=== PATIENT | male | born 2000 | race Caucasian/White ===

== ENCOUNTER 2024-10-31 00:28 | Emergency (ER) | payer BC, SELFPAY ==
[2024-10-31 00:36] VITALS: BP 99/64
[2024-10-31 00:53] LABS: Glucose - Point of Care 111 mg/dl (70-99)
[2024-10-31 01:25] LABS: % Basophils 1.1 % (0-2); % Eosinophils 2.3 % (0-6); % Immature Granulocytes 0.4 % (0-0.5); % Lymphocytes 25.3 % (20.5-51.1); % Monocytes 9.4 % (1.7-9.3); % Neutrophils 61.5 % (42.2-75.2); Absolute Basophils 0.1 10^3/uL (0-0.2); Absolute Eosinophils 0.2 10^3/uL (0-0.7); Absolute Monocytes 0.7 10^3/uL (0.1-0.6); Absolute Neutrophils 4.8 10^3/uL (1.4-6.5); Hemoglobin 13.9 g/dL (13.0-18.0); Mean Corp Hgb Conc. 35.6 g/dL (33.0-37.0); Mean Corpuscular Volume 84.1 fL (80.0-94.0); Mean Platelet Volume 9.4 fL (7.4-10.4); Nucleated Red Blood Cells % 0 % (-); Platelet Count 212 10^3/uL (130-400); Red Blood Cell Count 4.64 10^6/uL (4.70-6.10); Red Cell Dist. Width 11.6 % (11.5-14.5); White Blood Cell Count 7.9 10^3/uL (4.8-10.8)
[2024-10-31 01:34] LABS: ALT (SGPT) 27 U/L (0-50); AST (SGOT) 19 U/L (17-59); Albumin 4.7 g/dl (3.5-5.0); Alkaline Phosphatase 46 U/L (38-126); Blood Urea Nitrogen 24 mg/dl (9-20); Calcium 9.3 mg/dl (8.4-10.2); Carbon Dioxide 22 mmol/L (22-30); Chloride 109 mmol/L (98-107); Estimated Creatinine Clearance 114 ml/min; Glucose 111 mg/dl (70-99); Potassium 3.9 mmol/L (3.5-5.1); Sodium 140 mmol/L (135-145); Total Bilirubin 1.7 mg/dl (0.2-1.3); Total Protein 6.9 g/dl (6.3-8.2); eGFR > 60.00
[2024-10-31 01:40] VITALS: BP 112/64
--- NOTE | 2024-10-31 01:53 | ED.GENMED ---
History of Present Illness
General
Chief Complaint: Skin Surface Trauma
Source: patient
Time Seen by Provider: 10/31/24 01:39
History of Present Illness
History of Present Illness:
24-year-old male presents emergency department after an episode where he describes feeling perfectly well around 6 PM, playing video games etc. He ate a pretzel at 730. His next memory is waking up in his bed with wet hair in his underwear which
makes him speculate that he took a shower although he does not remember this. He noted nausea and dry heaves. He also has a wound to the posterior occiput. He got up out of bed and started to feel like he might pass out so he laid down across the
floor. This lasted about 15 minutes and then resolved and he got up, got dressed, and drove here. He feels well now. He denies neck pain, numbness, tingling, visual changes, chest pain, shortness of breath, abdominal pain. He does have mild
lower back discomfort which she thinks is related to recent lifting. He denies palpitations, fever, chills. He does note recent nasal congestion for which he is taking Mucinex and Motrin. Patient takes marijuana somewhat regularly and does admit
to taking 50 mg of an edible tonight which would not be a large dose for him. No incontinence. Patient notes a 'headache', and by that he is describing discomfort where the wound is.
Past History
Past History
ED Past Medical History: GERD and Psychiatric
ED Past Surgical History: None
Social History
Tobacco: Non-smoker
Alcohol: Occasional
Drug: Marijuana
Personal: Single
Employment: Employed
Phy Exam
Physical Exam
Physical Exam:
GENERAL: Alert , in no apparent distress
EYE: pupils equal and reactive, EOMI, no nystagmus, no photophobia
NECK: Supple, no significant adenopathy, no midline tenderness.
ENT: o/p clr, mmm, no taylor, no raccoon, no signs of head or facial injury with the exception of a proximately 3 cm laceration posterior occiput.
CARDIAC: Regular rate and rhythm .
LUNGS: Clear breath sounds bilaterally, no acute respiratory distress, no wheezes/rales/rhonchi
ABDOMEN: Soft, without focal tenderness, no r/g, no cvat
NEUROLOGICAL: Alert and oriented, no focal neuro deficits, motor 5 out of 5, sensory intact, [id number] normal, cranial nerves II through XII intact
SKIN: Warm and dry, skin intact.
MUSCULOSKELETAL: No edema, well perfused.
PSYCH: Normal and appropriate interaction.
Course
Orders/Labs/Results
Orders:
Orders
10/31/24 00:58
IV Insert/Care/Rem.- Treatment PRN
10/31/24 01:[address] [CT Head W/o Iv Contrast] Stat
Comment:
Reason For Exam: confusion head lac
10/31/24 01:02
Complete Blood Count/With Diff Urgent
Comprehensive Metabolic Panel Urgent
10/31/24 01:52
Lidocaine/Epinephrine/Tetracai [Let Topical Anesthetic Gel] 3 ml TOPICAL NOW STA
Tetanus/Diphth/Acelpertussis [Adacel] 0.5 ml IM .ONCE ONE
10/31/24 01:58
Electrocardiogram (*1) Urgent
Reason for Study: Syncope
EKG- Treatment ONCE
10/31/24 01:59
Urine Drug Abuse Screen Urgent
10/31/24 02:16
Acetaminophen [Tylenol] 650 mg .ROUTE .STK-MED ONE
Abnormal Lab Results
10/31/24 10/31/24
00:43 01:02
RBC 4.64 L 10^6/uL
(4.70-6.10)
Absolute Monos (auto) 0.7 H 10^3/uL
(0.1-0.6)
Monocytes % 9.4 H %
(1.7-9.3)
Chloride 109 H mmol/L
(98-107)
BUN 24 H mg/dl
(9-20)
Glucose 111 H mg/dl
(70-99)
Total Bilirubin 1.7 H mg/dl
(0.2-1.3)
POC Glucose 111 H mg/dl
(70-99)
10/31/24 01:02
10/31/24 01:02
Vital Signs
Initial and Last Documented VS:
Initial Vital Signs
Temp Pulse Resp BP Pulse Ox
97.7 F 85 18 99/64 99
10/31/24 00:36 10/31/24 00:36 10/31/24 00:36 10/31/24 00:36 10/31/24 00:36
Last Documented Vital Signs
Temp Pulse Resp BP Pulse Ox
97.9 F 76 20 112/64 98
10/31/24 01:40 10/31/24 01:40 10/31/24 01:40 10/31/24 01:40 10/31/24 01:43
Procedures
Laceration Closure
Scalp:
Status of Wound: clean
Size of Wound in cm: 3
Description of Wound Edges: sharp
Preparation: cleaned with soap & water
Anesthesia: Topical-LET
Revision/Debridement: routine- no revision
Wound exploration: explored to base- no FB
Type of Closure: single layer closure
Skin Closure Material: skin jackson
Number of sutures: 6
Update Note
Update Note:
Patient presents to the Emergency Department with ___reported confusion, head laceration, memory deficit
Number and Complexity of Problems Addressed at the Encounter
� Chronic conditions affecting care:
� Acute Exacerbation and/or Progression of Chronic Illness:
� Differential Diagnosis includes: But not limited to syncope, seizure, concussion, electrolyte disorder, drug effects, etc. etc.
Amount and/or Complexity of Data to be Reviewed and Analyzed
� I performed an independent evaluation of and my interpretation is:
EKG: Read by me, normal sinus rhythm, benign early repolarization, no acute ischemia
CT: Read by vision no acute hemorrhage herniation or hydrocephalus. Right parietal scalp soft tissue swelling.
Xrays:
Laboratory Studies: Generally unremarkable
Other:
� Review of other/old records reveals:
� Clinical information was obtained by an independent historian:
� Prescriptions/Medications Considered but not given:
� Further testing considered but not performed:
Risk of Complications and/or Morbidity or Mortality of Patient Management
� Social determinants of health affecting care:
� Discussion with other providers (PCP, Hospitalists, Consultants, etc):
� Escalation of care including admission/observation vs risk of discharge considered: Think seizure is very unlikely given no tongue laceration, no reported incontinence, etc.
3:56 AM patient remains awake alert lucid, no injuries or neurodeficits with the exception of his laceration which I just repaired with jackson. Discussed with patient portance of follow-up and reasons return to the emergency department.
ED Attending Note
-
Portions of this chart may have been created with voice recognition software.� Occasional wrong word or��sound alike� substitutions may have occurred due to the inherent limitations of voice recognition software.
Discharge Plan
Departure
Patient Disposition: Home (Routine Discharge)
Date of Disposition: 10/31/24
Time of Disposition: 03:58
Patient with high blood pressure during this ER visit?: No
Condition: Good
Discharge Problem:
Laceration, Suspected syncope
Instructions: Syncope (fainting), Laceration Repair With Jackson (DC), BLOOD PRESSURE
Prescriptions:
No Action
lorazepam [Ativan] 1 mg Tablet
1 mg PO DAILY
sertraline 50 mg Tablet
50 mg PO DAILY
famotidine
20 mg PO DAILY
trazodone
50 mg PO DAILY
Referrals:
UNKNOWN - PT DOES,NOT KNOW [Family Provider] -
Activity Restrictions/Additional Instructions:
IF YOU DEVELOP CHEST PAIN, SHORTNESS OF BREATH, DIZZINESS, SEVERE HEADACHE, NECK PAIN, NUMBNESS, WEAKNESS, CHANGE IN VISION, OR OTHER WORRISOME SIGNS, PLEASE RETURN TO THE ER IMMEDIATELY! YOU HAD 6 JACKSON PLACED IN YOUR HEAD WOUND, THESE NEED TO
BE REMOVED IN APPROXIMATELY 7 TO 10 DAYS.
Interventions
Interventions:
*Risk Screen - Suicide Last Done: 10/31/24 00:36
*General Assessment Last Done: 10/31/24 00:36
*Neglect/Abuse Screening Last Done: 10/31/24 00:36
*ED- Fall Risk Assessment Last Done: 10/31/24 01:43
*ED COVID-19 Vaccine History Last Done: 10/31/24 01:43
ED-Skin Assessment Last Done: 10/31/24 02:53
Discharge Date and Time
Print Language: FAROESE
[2024-10-31] MEDS: LET TOPICAL ANESTHETIC GEL 3 ML TOPICAL (02:36)
[2024-10-31] MEDS: ADACEL 0.5 ML IM (02:38)
[2024-10-31 04:30] VITALS: BP 116/76
== END 2024-10-31 04:31 | disposition home or self-care (01) ==
LOC: EMR 00:28
PROVIDERS: Student in an Organized Health Care Education/Training Program; EMERGENCY PHYSICIAN Emergency Medicine
DX: S01.119A Laceration without foreign body of unspecified eyelid and periocular area, initial encounter (principal); X58.XXXA Exposure to other specified factors, initial encounter; R11.0 Nausea
CPT/HCPCS: 99284; 12013; 90471; 70450; 80053; 82962; 85025; 90715; 93005